=== PATIENT | male | born 1975 | race Caucasian/White ===

== ENCOUNTER 2023-12-31 13:12 | Inpatient (IN) | payer OTHER ==
[2023-12-31 14:08] VITALS: BMI 38.7
[2023-12-31] MEDS ORDERED: BISMUTH SUBSALICYLATE 524 MG/30 ML PO PRN (16:48)
[2023-12-31] MEDS ORDERED: guaiFENesin 600 MG TABLET.ER (FP) PO PRN (16:48)
[2023-12-31] MEDS ORDERED: LOPERAMIDE HCL 2 MG CAPSULE PO PRN (16:48)
[2023-12-31] MEDS ORDERED: ACETAMINOPHEN 325 MG TABLET (FP) PO PRN (16:48)
[2023-12-31] MEDS ORDERED: IBUPROFEN 400 MG TABLET (FP) PO PRN (16:48)
[2023-12-31] MEDS ORDERED: POLYETHYLENE GLYCOL (HEALTHYLAX) 3350 17 GM PACKET PO PRN (16:48)
[2023-12-31] MEDS ORDERED: MAGNESIUM HYDROX 2400MG/30ML ORAL SUSPENSION 30 ML CUP PO PRN (16:48)
[2023-12-31] MEDS ORDERED: DICYCLOMINE HCL 10 MG CAPSULE PO PRN (16:48)
[2023-12-31] MEDS ORDERED: NALOXONE HCL 0.4 MG/ML VIAL IM PRN (16:48)
[2023-12-31] MEDS ORDERED: NALOXONE HCL (KLOXXADO) 8 MG SPRAY NS PRN (16:48)
[2023-12-31] MEDS ORDERED: ONDANSETRON *ODT* 4 MG TABLET SL PRN (16:48)
[2023-12-31] MEDS ORDERED: MAG HYDROX/AL HYDROX/SIMETH 30 ML UNIT-DOSE CUP PO PRN (16:48)
[2023-12-31] MEDS ORDERED: BENZOCAINE/MENTHOL (CHLORASEPTIC ) LOZENGE MM PRN (16:48)
[2023-12-31] MEDS ORDERED: IBUPROFEN 600 MG TABLET (FP) PO PRN (16:48)
[2023-12-31] MEDS ORDERED: BENZONATATE 200 MG CAPSULE PO PRN (16:48)
[2023-12-31] MEDS ORDERED: NICOTINE POLACRILEX 2 MG GUM BUC PRN (16:48)
[2023-12-31] MEDS: MELATONIN 5 MG TABLETS PO SCH (22:56)
[2023-12-31] MEDS: THIAMINE HCL 100 MG TABLET (FP) PO SCH (22:57)
[2024-01-01] MEDS ORDERED: LORazepam 1 MG TABLET PO PRN (08:06)
[2024-01-01] MEDS ORDERED: methaDONE HCL 40 MG DISPERSABLE TABLET PO SCH (08:15)
[2024-01-01] MEDS: methaDONE 80 MG, methaDONE 10 MG PO SCH (08:31)
[2024-01-01] MEDS: LORazepam 2 MG TABLET PO ONE (08:33)
[2024-01-01] MEDS: PRENATAL VITAMINS W/ FOLIC ACID TABLET (FP) PO SCH (11:32)
[2024-01-01] MEDS: LORazepam 2 MG TABLET PO SCH (11:50)
[2024-01-01 11:56] LABS: HEMATOCRIT 35.2 % (35.4-49); HEMOGLOBIN 11.7 GM/dL (11.7-16.9); MCH 35.3 pg (25.7-33.7); MCHC 33.1 g/dl (32.0-35.9); MEAN CELL VOLUME 106.5 fl (80-96); MEAN PLT VOLUME 9.2 fl (7.5-11.1); PLATELET COUNT 119 10^3/uL (134-434); RDW 16.1 % (11.9-15.9); WHITE BLOOD COUNT 5.2 K/mm3 (4.0-10.0)
[2024-01-01 12:06] LABS: POTASSIUM 4.4 mmol/L (3.5-5.1)
[2024-01-01 12:15] LABS: CALCIUM 9.1 mg/dL (8.5-10.1)
[2024-01-01 12:16] LABS: ALBUMIN 2.9 g/dl (3.4-5.0); BLOOD UREA NITROGEN 33.9 mg/dL (7-18)
[2024-01-01 12:19] LABS: CREATININE 1.6 mg/dL (0.55-1.3)
[2024-01-01 12:21] LABS: BILIRUBIN,TOTAL 0.4 mg/dL (0.2-1); TOT PROT 6.2 g/dl (6.4-8.2)
[2024-01-01] MEDS: cloNIDine HCL 0.1 MG TABLET PO ONE (13:49)
[2024-01-01] MEDS: LOSARTAN POTASSIUM 50 MG TABLET PO SCH (15:44)
[2024-01-02] MEDS: METHOCARBAMOL 500 MG TABLET PO PRN (10:15)
[2024-01-02 12:08] LABS: POTASSIUM 4.1 mmol/L (3.5-5.1)
[2024-01-02 12:09] LABS: BLOOD UREA NITROGEN 17.5 mg/dL (7-18); CALCIUM 8.9 mg/dL (8.5-10.1)
[2024-01-02 12:13] LABS: CREATININE 0.9 mg/dL (0.55-1.3)
[2024-01-02 12:14] LABS: BILIRUBIN,TOTAL 0.8 mg/dL (0.2-1); TOT PROT 6.4 g/dl (6.4-8.2)
[2024-01-02] MEDS: hydrOXYzine PAMOATE 25 MG CAPSULE (FP) PO ONE (15:53)
[2024-01-03] MEDS: LORazepam 1 MG TABLET PO SCH (05:55)
[2024-01-04] MEDS ORDERED: LORazepam 0.5 MG TABLET PO PRN
[2024-01-04] MEDS: LORazepam 0.5 MG TABLET PO SCH (05:50)
[2024-01-05] MEDS: LORazepam 0.5 MG TABLET PO ONE (05:32)
[2024-01-05 06:50] VITALS: BP 126/89; PULSE 64; RESP 16; TEMP 97.6
== END 2024-01-05 09:50 | disposition home or self-care (01) | DRG 773 ==
LOC: YASAS 13:12 → Y6N 17:18
PROVIDERS: ADMIT Allergy & Immunology; ATTEND Surgery
PROC: HZ2ZZZZ Detoxification Services for Substance Abuse Treatment (ICD-10-PCS; principal; 2023-12-31)
DX: F10.230 Alcohol dependence with withdrawal, uncomplicated (principal); F11.20 Opioid dependence, uncomplicated; F17.210 Nicotine dependence, cigarettes, uncomplicated; I10 Essential (primary) hypertension; R74.8 Abnormal levels of other serum enzymes; R73.9 Hyperglycemia, unspecified
CPT/HCPCS: 36415; 80053; 80305; 83036; 85027; 86780; 93005; 93010

== ENCOUNTER 2024-03-17 12:18 | Inpatient (IN) | payer OTHER ==
[2024-03-17 13:09] VITALS: BMI 41.3
[2024-03-17] MEDS ORDERED: IBUPROFEN 400 MG TABLET (FP) PO PRN (15:11)
[2024-03-17] MEDS ORDERED: DOCUSATE SODIUM 100 MG CAPSULE (FP) PO PRN (15:11)
[2024-03-17] MEDS ORDERED: BENZONATATE 200 MG CAPSULE PO PRN (15:11)
[2024-03-17] MEDS ORDERED: BISACODYL 5 MG TABLET.DR (FP) PO PRN (15:11)
[2024-03-17] MEDS ORDERED: BISMUTH SUBSALICYLATE 262 MG/15 ML BTL PO PRN (15:11)
[2024-03-17] MEDS ORDERED: ONDANSETRON *ODT* 4 MG TABLET SL PRN (15:11)
[2024-03-17] MEDS ORDERED: MAGNESIUM HYDROX 2400MG/30ML ORAL SUSPENSION 30 ML CUP PO PRN (15:11)
[2024-03-17] MEDS ORDERED: ACETAMINOPHEN 325 MG TABLET (FP) PO PRN (15:11)
[2024-03-17] MEDS ORDERED: IBUPROFEN 600 MG TABLET (FP) PO PRN (15:11)
[2024-03-17] MEDS ORDERED: BENZOCAINE/MENTHOL (CHLORASEPTIC ) LOZENGE MM PRN (15:11)
[2024-03-17] MEDS ORDERED: DICYCLOMINE HCL 10 MG CAPSULE PO PRN (15:11)
[2024-03-17] MEDS ORDERED: LOPERAMIDE HCL 2 MG CAPSULE PO PRN (15:11)
[2024-03-17] MEDS ORDERED: POLYETHYLENE GLYCOL (HEALTHYLAX) 3350 17 GM PACKET PO PRN (15:11)
[2024-03-17] MEDS ORDERED: MAG HYDROX/AL HYDROX/SIMETH 30 ML UNIT-DOSE CUP PO PRN (15:11)
[2024-03-17] MEDS ORDERED: NICOTINE POLACRILEX 2 MG GUM BUC PRN (15:11)
[2024-03-17] MEDS ORDERED: NALOXONE (NARCAN) HCL 4 MG/0.1 ML SPRAY NS PRN (15:11)
[2024-03-17] MEDS ORDERED: NICOTINE POLACRILEX 2 MG LOZENGE BC PRN (15:11)
[2024-03-17] MEDS ORDERED: guaiFENesin 600 MG TABLET.ER (FP) PO PRN (15:11)
[2024-03-17] MEDS ORDERED: NALOXONE HCL 0.4 MG/ML VIAL IM PRN (15:11)
[2024-03-17] MEDS ORDERED: diazePAM 5 MG TABLET ONE (16:47)
[2024-03-17] MEDS: diazePAM 5 MG TABLET PO SCH (16:52)
[2024-03-17] MEDS: METHOCARBAMOL 500 MG TABLET PO PRN (18:37)
[2024-03-17] MEDS: diazePAM 5 MG TABLET PO PRN (19:05)
[2024-03-17] MEDS ORDERED: busPIRone HCL 5 MG TABLET PO ONE (20:00)
[2024-03-17] MEDS: THIAMINE 100 MG TABLET PO SCH (22:06)
[2024-03-17] MEDS: MIRTAZAPINE 15 MG TABLET (FP) PO ONE (22:06)
[2024-03-17] MEDS: busPIRone HCL 5 MG TABLET PO ONE (22:06)
[2024-03-17] MEDS: MELATONIN 5 MG TABLETS PO SCH (22:06)
[2024-03-17] MEDS: traZODone HCL 50 MG TABLET (FP) PO ONE (22:06)
[2024-03-18] MEDS ORDERED: methaDONE HCL 10 MG TABLET PO SCH (07:43)
[2024-03-18] MEDS: methaDONE 80 MG, methaDONE 10 MG PO ONE (07:55)
[2024-03-18] MEDS: FUROSEMIDE 20 MG TABLET (FP) PO SCH (10:18)
[2024-03-18] MEDS: LOSARTAN POTASSIUM 50 MG TABLET PO SCH (10:18)
[2024-03-18] MEDS: busPIRone HCL 10 MG TABLET (FP) PO SCH (10:18)
[2024-03-18] MEDS: PRENATAL VITAMINS W/ FOLIC ACID TABLET (FP) PO SCH (10:18)
[2024-03-18 10:47] LABS: HEMATOCRIT 35.5 % (35.4-49); HEMOGLOBIN 11.7 GM/dL (11.7-16.9); MCH 32.2 pg (25.7-33.7); MEAN CELL VOLUME 97.3 fl (80-96); MEAN PLT VOLUME 8.6 fl (7.5-11.1); PLATELET COUNT 66 10^3/uL (134-434); RBC 3.65 M/mm3 (4.00-5.60); RDW 14.3 % (11.9-15.9); WHITE BLOOD COUNT 3.5 K/mm3 (4.0-10.0)
[2024-03-18 10:50] LABS: CHLORIDE 102 mmol/L (98-107); POTASSIUM 3.5 mmol/L (3.5-5.1); SODIUM 139 mmol/L (136-145)
[2024-03-18 10:53] LABS: CALCIUM 8.9 mg/dL (8.5-10.1)
[2024-03-18 10:54] LABS: ALBUMIN 3.1 g/dl (3.4-5.0); ANION GAP 6 mmol/L (4-13); BLOOD UREA NITROGEN 12.6 mg/dL (7-18); CO2 32 mmol/L (21-32); GLUCOSE,RANDOM 92 mg/dL (74-106)
[2024-03-18 10:57] LABS: CREATININE 0.7 mg/dL (0.55-1.3); SGOT/AST 66 U/L (15-37); SGPT/ALT 37 U/L (13-61)
[2024-03-18 10:58] LABS: BILIRUBIN,TOTAL 0.6 mg/dL (0.2-1); TOT PROT 6.3 g/dl (6.4-8.2)
[2024-03-18 11:00] LABS: ALK PHOS 38 U/L (45-117)
[2024-03-18] MEDS: MIRTAZAPINE 15 MG TABLET (FP) PO SCH (22:24)
[2024-03-18] MEDS: traZODone HCL 50 MG TABLET (FP) PO SCH (22:24)
[2024-03-19] MEDS: methaDONE 80 MG, methaDONE 10 MG PO SCH (05:43)
[2024-03-19] MEDS: diazePAM 5 MG TABLET PO SCH (05:43)
[2024-03-20] MEDS: diazePAM 5 MG TABLET PO SCH (05:32)
[2024-03-21] MEDS: diazePAM 5 MG TABLET PO ONE (05:25)
[2024-03-21 06:48] VITALS: PULSE 69; RESP 18
[2024-03-21 08:52] VITALS: BP 118/69; TEMP 97.4
== END 2024-03-21 08:56 | disposition home or self-care (01) | DRG 773 ==
LOC: YASAS 12:18 → Y3N 16:29
PROVIDERS: ADMIT Allergy & Immunology; ATTEND Surgery
PROC: HZ2ZZZZ Detoxification Services for Substance Abuse Treatment (ICD-10-PCS; principal; 2024-03-17)
DX: F10.230 Alcohol dependence with withdrawal, uncomplicated (principal); F11.20 Opioid dependence, uncomplicated; F17.210 Nicotine dependence, cigarettes, uncomplicated; F32.9 Major depressive disorder, single episode, unspecified; I10 Essential (primary) hypertension; G89.29 Other chronic pain
CPT/HCPCS: 36415; 80053; 80305; 80307; 85027; 86780

== ENCOUNTER 2024-12-12 14:16 | Inpatient (IN) | payer OTHER ==
[2024-12-12] MEDS ORDERED: diazePAM 5 MG TABLET PO PRN (15:07)
[2024-12-12] MEDS ORDERED: MAGNESIUM HYDROX 2400MG/30ML ORAL SUSPENSION 30 ML CUP PO PRN (15:16)
[2024-12-12] MEDS ORDERED: LOPERAMIDE HCL 2 MG CAPSULE PO PRN (15:16)
[2024-12-12] MEDS ORDERED: ACETAMINOPHEN 325 MG TABLET (FP) PO PRN (15:16)
[2024-12-12] MEDS ORDERED: BENZONATATE 200 MG CAPSULE PO PRN (15:16)
[2024-12-12] MEDS ORDERED: ONDANSETRON *ODT* 4 MG TABLET SL PRN (15:16)
[2024-12-12] MEDS ORDERED: DICYCLOMINE HCL 10 MG CAPSULE PO PRN (15:16)
[2024-12-12] MEDS ORDERED: NICOTINE POLACRILEX 2 MG LOZENGE BC PRN (15:16)
[2024-12-12] MEDS ORDERED: BISMUTH SUBSALICYLATE 524 MG/30 ML PO PRN (15:16)
[2024-12-12] MEDS ORDERED: guaiFENesin 600 MG TABLET.ER (FP) PO PRN (15:16)
[2024-12-12] MEDS ORDERED: MAG HYDROX/AL HYDROX/SIMETH 30 ML UNIT-DOSE CUP PO PRN (15:16)
[2024-12-12] MEDS ORDERED: POLYETHYLENE GLYCOL (HEALTHYLAX) 3350 17 GM PACKET PO PRN (15:16)
[2024-12-12] MEDS ORDERED: IBUPROFEN 400 MG TABLET (FP) PO PRN (15:16)
[2024-12-12] MEDS ORDERED: BENZOCAINE/MENTHOL (CHLORASEPTIC ) LOZENGE MM PRN (15:16)
[2024-12-12] MEDS ORDERED: NICOTINE POLACRILEX 2 MG GUM BUC PRN (15:16)
[2024-12-12] MEDS ORDERED: NALOXONE (NARCAN) HCL 4 MG/0.1 ML SPRAY NS PRN (15:16)
[2024-12-12] MEDS: diazePAM 5 MG TABLET PO SCH (17:40)
[2024-12-12] MEDS: THIAMINE 100 MG TABLET PO SCH (22:47)
[2024-12-12] MEDS: MELATONIN 5 MG TABLETS PO SCH (22:47)
[2024-12-13] MEDS ORDERED: methaDONE HCL 10 MG TABLET PO SCH (07:45)
[2024-12-13] MEDS: methaDONE 80 MG, methaDONE 20 MG PO SCH (07:55)
[2024-12-13] MEDS: LOSARTAN POTASSIUM 50 MG TABLET PO SCH (10:23)
[2024-12-13] MEDS: FUROSEMIDE 20 MG TABLET (FP) PO SCH (10:23)
[2024-12-13] MEDS: PRENATAL VITAMINS W/ FOLIC ACID TABLET (FP) PO SCH (10:23)
[2024-12-13] MEDS: HYDROCHLOROTHIAZIDE 25 MG TABLET (FP) PO SCH (10:23)
[2024-12-13] MEDS: IBUPROFEN 600 MG TABLET (FP) PO PRN (10:27)
[2024-12-13] MEDS: METHOCARBAMOL 500 MG TABLET PO PRN (10:27)
[2024-12-13 10:52] LABS: POTASSIUM 3.2 mmol/L (3.5-5.1)
[2024-12-13 10:57] LABS: HEMATOCRIT 33.8 % (35.4-49); HEMOGLOBIN 11.6 GM/dL (11.7-16.9); MCH 31.7 pg (25.7-33.7); MCHC 34.2 g/dl (32.0-35.9); MEAN CELL VOLUME 92.7 fl (80-96); MEAN PLT VOLUME 9.1 fl (7.5-11.1); PLATELET COUNT 99 10^3/uL (134-434); RBC 3.65 M/mm3 (4.00-5.60); RDW 13.2 % (11.9-15.9); WHITE BLOOD COUNT 5.3 K/mm3 (4.0-10.0)
[2024-12-13 11:19] LABS: CALCIUM 8.4 mg/dL (8.5-10.1)
[2024-12-13 11:20] LABS: BLOOD UREA NITROGEN 20.3 mg/dL (7-18)
[2024-12-13 11:23] LABS: CREATININE 0.9 mg/dL (0.55-1.3)
[2024-12-13 11:25] LABS: BILIRUBIN,TOTAL 0.3 mg/dL (0.2-1); TOT PROT 6.3 g/dl (6.4-8.2)
[2024-12-13] MEDS: busPIRone HCL 10 MG TABLET (FP) PO SCH (11:54)
[2024-12-13] MEDS: GABAPENTIN 100 MG CAPSULE PO SCH (13:30)
[2024-12-13] MEDS: hydrOXYzine PAMOATE 25 MG CAPSULE (FP) PO PRN (13:39)
[2024-12-13] MEDS: POTASSIUM CHLORIDE ORAL LIQUID 20 MEQ/15 ML PO ONE (14:16)
[2024-12-13] MEDS: MIRTAZAPINE 15 MG TABLET (FP) PO SCH (22:28)
[2024-12-13] MEDS: traZODone HCL 50 MG TABLET (FP) PO ONE (22:30)
[2024-12-14] MEDS: diazePAM 5 MG TABLET PO SCH (05:56)
[2024-12-14 09:30] VITALS: BP 100/73; PULSE 69; RESP 18; TEMP 98.7
[2024-12-14] MEDS: POTASSIUM CHLORIDE ORAL LIQUID 20 MEQ/15 ML PO ONE (11:05)
[2024-12-15] MEDS ORDERED: diazePAM 5 MG TABLET PO SCH (06:00)
[2024-12-16] MEDS ORDERED: diazePAM 5 MG TABLET PO ONE (06:00)
== END 2024-12-14 12:23 | disposition home or self-care (01) | DRG 773 ==
LOC: YASAS 14:16 → Y6N 17:03
PROVIDERS: ADMIT Allergy & Immunology; ATTEND Allergy & Immunology
PROC: HZ2ZZZZ Detoxification Services for Substance Abuse Treatment (ICD-10-PCS; principal; 2024-12-12)
DX: F10.230 Alcohol dependence with withdrawal, uncomplicated (principal); F11.20 Opioid dependence, uncomplicated; F19.282 Other psychoactive substance dependence with psychoactive substance-induced sleep disorder; F19.280 Other psychoactive substance dependence with psychoactive substance-induced anxiety disorder; F19.24 Other psychoactive substance dependence with psychoactive substance-induced mood disorder; F41.8 Other specified anxiety disorders; F39 Unspecified mood [affective] disorder; D69.6 Thrombocytopenia, unspecified; E87.6 Hypokalemia; I11.0 Hypertensive heart disease with heart failure; I50.9 Heart failure, unspecified; M79.2 Neuralgia and neuritis, unspecified
CPT/HCPCS: 36415; 80053; 80305; 80307; 85027; 86780